=== PATIENT | male | born 1935 | race Caucasian/White ===

== ENCOUNTER 2019-09-21 15:51 | Inpatient (IN) | payer MEDICARE, OTHER ==
[~2019-09-21] VITALS: Ht 177.8 cm; Wt 123.2 kg
[~2019-09-21 15:51] MED LIST: ALBU90I INH; ALLO100 PO; ALLO300 PO; CALC.25 PO; FOSI10 PO; FOSINOPRIL PO; FURO40 PO; Lasix40 MG PO; MECL25 PO; RANI150 PO; SPIR25 PO; WARF6 PO; [UNRECOGNIZED DRUG - CODE] SL
[2019-09-21] MEDS ORDERED: Amlodipine Bes2.5 MG PO (16:13)
[2019-09-21 16:59] LABS: BASOPHILS ABSOLUTE AUTO 0.03 K/mm3 (0.00-0.23); BASOPHILS PERCENT AUTO 0 % (0-2); EOSINOPHILS ABSOLUTE AUTO 0.08 K/mm3 (0.00-0.68); EOSINOPHILS PERCENT AUTO 1 % (0-6); Hemoglobin 15.4 g/dL (13.5-17.5); IMMATURE GRAN ABSOLUTE AUTO 0.03 K/mm3 (0.00-0.10); IMMATURE GRAN PERCENT AUTO 0 % (0-1); LYMPHOCYTES ABSOLUTE AUTO 1.13 K/mm3 (0.84-5.20); LYMPHOCYTES PERCENT AUTO 15 % (21-46); MONOCYTES ABSOLUTE AUTO 0.44 K/mm3 (0.16-1.47); MONOCYTES PERCENT AUTO 6 % (4-13); Mean Corpuscular HGB Conc 32.1 g/dL (31.5-36.5); Mean Corpuscular Volume 100 fL (80-100); NEUTROPHILS ABSOLUTE AUTO 5.76 K/mm3 (1.96-9.15); NEUTROPHILS PERCENT AUTO 77 % (41-73); Platelet Count 237 K/mm3 (150-400); RDW Coefficient Variation 12.9 % (11.7-14.2); RDW Standard Deviation 47.4 fL (35.1-46.3); Red Blood Cell Count 4.82 M/mm3 (4.30-5.90); White Blood Cell Count 7.47 K/mm3 (4.00-11.30)
[2019-09-21 17:16] LABS: International Normalized Ratio 1.48; Prothrombin Time Results 15.5 Sec (9.7-11.5)
[2019-09-21 17:40] LABS: Albumin, Blood 3.8 g/dL (3.4-5.0); Bilirubin, Total 0.4 mg/dL (0.1-1.0); Bun/Creatinine Ratio 20.6 (12.0-20.0); Calcium, Blood 9.3 mg/dL (8.5-10.1); Creatinine, Blood 1.26 mg/dL (0.60-1.20); Globulin, Blood 3.9 g/dL (2.2-4.0); Potassium, Blood 3.6 mmol/L (3.5-5.5); Total Protein, Blood 7.7 g/dL (6.4-8.2)
[2019-09-21] MEDS ORDERED: POTA10T PO (17:50)
[2019-09-21] MEDS ORDERED: Bumetanide2 MG PO (17:51)
[2019-09-21 18:51] LABS: PCO2 Venous 60 mmHg (38-42); pH Blood Venous 7.34 (7.34-7.37)
[2019-09-21 18:52] LABS: Base Excess Venous 6.4 mmol/L; Bicarbonate Venous 27.9 mmol/L (24.0-30.0); PO2 Venous 50 mmHg (38-42)
[2019-09-21] MEDS ORDERED: VITAMIN D350 MCG PO (19:47)
--- NOTE | 2019-09-22 01:50 | NUR ---
PT ARRIVED TO ROOM AT 2230 FROM ER. SPOUSE AT BEDSIDE. MEDS VERIFIED WITH LAST DOSE TAKEN. SPOUSE HAD GIVEN PT HIS NIGHTIME MEDS WHILE A PT IN THE ER. INFORMED HER HE WILL BE GETTING HIS MEDS HERE IN THE HOSPITAL AND TO NOT GIVE HIM ANY MORE OF HIS OWN MEDS THAT SHE HAS WITH HER. STATES UNDERSTANDING. PT AND SPOUSE ORIENTED TO ROOM, ETC. VSS. UP TO BSC WITH URINAL. MISSED UA ORDER, WILL COLLECT AND SEND NEXT SAMPLE. ASSESSMENT NOTED. CALL LIGHT IN REACH. ABX INFUSED. RECLINER BROUGHT IN FOR .
[2019-09-22 04:12] LABS: Hematocrit 47.2 % (37.0-53.0); Hemoglobin 14.9 g/dL (13.5-17.5); Mean Corpuscular HGB 31.6 pg (26.0-34.0); Mean Corpuscular HGB Conc 31.6 g/dL (31.5-36.5); Mean Corpuscular Volume 100 fL (80-100); Platelet Count 244 K/mm3 (150-400); RDW Coefficient Variation 13.1 % (11.7-14.2); RDW Standard Deviation 48.4 fL (35.1-46.3); Red Blood Cell Count 4.71 M/mm3 (4.30-5.90)
[2019-09-22 04:35] LABS: Bun/Creatinine Ratio 23.7 (12.0-20.0); Calcium, Blood 9.6 mg/dL (8.5-10.1); Creatinine, Blood 1.39 mg/dL (0.60-1.20); Potassium, Blood 3.9 mmol/L (3.5-5.5)
--- NOTE | 2019-09-22 06:02 | NUR ---
NO SIG CHANGES SINCE ARRIVAL. PT HAS SLEPT OFF AND ON SINCE ADMISSION. CURRENTLY AWAKE, SITTING UP IN BED WITH LIGHTS ON, AT BEDSIDE, DRINKING DECAF COFFEE. DENIES ANY ADDITIONAL NEEDS. NO NEW COMPLAINTS. WILL CONT TO MONITOR, DOCUMENT ANY CHANGES AND WILL REPORT TO DAY SHIFT RN. CALL LIGHT IN REACH.
[2019-09-22 09:49] LABS: International Normalized Ratio 1.6; Prothrombin Time Results 16.7 Sec (9.7-11.5)
--- NOTE | 2019-09-22 11:30 | NUR ---
TRANSFER OF CARE REPORT CALLED TO [facility] ON MEDICAL FLOOR. PT TRANSFERED TO ROOM 309. ALL BELONGINGS GATHERED AND TRASFERRED WITH PT. FAMILY AND PCT [facility] ESCORTED PT UPSTAIRS VIA WHEELCHAIR.
--- NOTE | 2019-09-22 13:41 | NUR ---
PCU TRANSFER- PT ARRIVED TO ROOM 309 FROM PCU AT 1158 VIA W/C. PT SAB INTO BED. PT DENIES ANY COMPLAINTS AT THIS TIME. LS CLEAR ON 2L N/C HOWEVER PT HAD WENT TO THE RESTROOM AND SATS 93% ON RA AFTER EXERTION, WILL TITRATE OFF. PT DENIES ANY DIZZINESS WITH STANDING. HRR. 1+ BLE EDEMA. PT ORIENTED TO ROOM AND CALL SYSTEM. CALL LIGHT IN REACH. SPOUSE AT BEDSIDE.
--- NOTE | 2019-09-22 13:45 | NUR ---
PT AMBULATED IN HALLS WITH SBA, 02 SATS 93% ON RA WITH EXERTION.
--- NOTE | 2019-09-22 16:47 | NUR ---
SHIFT SUMMARY- PT A PCU TRANSFER THIS AM. PT A/OX4 HOWEVER NOTED TO HAVE SOME INCREASED CONFUSION AFTER SLEEPING FOR A SHORT PERIOD OF TIME ON ROOM AIR, SATS 90%, SLEEP STUDY ORDERED FOR TONIGHT. PT WAS ABLE TO AMBULATE ON ROOM AIR WITH SATS AT 93%. CONT BIOX IN PLACE, LS CLEAR. SBA INTO BATHROOM AND HALLWAYS. 1+ BLE EDEMA. NO OTHER ACUTE CHANGES SINCE ARRIVAL TO FLOOR.
--- NOTE | 2019-09-23 05:15 | NUR ---
NOC SHIFT SUMMARY PT AAOX4 THIS EVENING THOUGH HE DOES BECOME MORE CONFUSED DURING THE NIGHT. ON WAKING IT TAKES HIM A MOMENT TO GET HIS BEARINGS. SLEEP STUDY CONDUCTED THIS NIGHT. PT HAS BEEN UP TO THE RESTROOM MULTIPLE TIMES THIS NIGHT. EACH TIME HE GETS UP HE PULLS OFF HIS FINGER MONITOR. HAS SPENT MUCH OF THE NIGHT IN ROOM AND HELPS WITH CARE. VSS. SATS DO DROP ON RA WHILE SLEEPING. THIS RN SAW LOW 85%. NO ACUTE CHANGES NOTED. PT PRESENTLY APEARS TO BE SLEEPING AND IN NO ACUTE DISTRESS. WILL CONTINUE TO MONITOR.
[2019-09-23 06:01] LABS: BASOPHILS ABSOLUTE AUTO 0.05 K/mm3 (0.00-0.23); BASOPHILS PERCENT AUTO 1 % (0-2); EOSINOPHILS ABSOLUTE AUTO 0.26 K/mm3 (0.00-0.68); EOSINOPHILS PERCENT AUTO 4 % (0-6); Hematocrit 45.1 % (37.0-53.0); Hemoglobin 14.2 g/dL (13.5-17.5); IMMATURE GRAN ABSOLUTE AUTO 0.02 K/mm3 (0.00-0.10); IMMATURE GRAN PERCENT AUTO 0 % (0-1); LYMPHOCYTES ABSOLUTE AUTO 1.99 K/mm3 (0.84-5.20); LYMPHOCYTES PERCENT AUTO 29 % (21-46); MONOCYTES ABSOLUTE AUTO 0.63 K/mm3 (0.16-1.47); MONOCYTES PERCENT AUTO 9 % (4-13); Mean Corpuscular HGB 31.8 pg (26.0-34.0); Mean Corpuscular HGB Conc 31.5 g/dL (31.5-36.5); Mean Corpuscular Volume 101 fL (80-100); Mean Platelet Volume 8.7 fL (9.1-12.4); NEUTROPHILS ABSOLUTE AUTO 3.84 K/mm3 (1.96-9.15); NEUTROPHILS PERCENT AUTO 57 % (41-73); Platelet Count 206 K/mm3 (150-400); RDW Coefficient Variation 13.1 % (11.7-14.2); RDW Standard Deviation 48.9 fL (35.1-46.3); Red Blood Cell Count 4.47 M/mm3 (4.30-5.90); White Blood Cell Count 6.79 K/mm3 (4.00-11.30)
[2019-09-23 06:16] LABS: International Normalized Ratio 1.76; Prothrombin Time Results 18.2 Sec (9.7-11.5)
[2019-09-23 06:20] LABS: Bun/Creatinine Ratio 22.8 (12.0-20.0); Calcium, Blood 9.7 mg/dL (8.5-10.1); Creatinine, Blood 1.45 mg/dL (0.60-1.20); Potassium, Blood 3.9 mmol/L (3.5-5.5)
--- NOTE | 2019-09-23 17:50 | NUR ---
SHIFT SUMMARY PT HAS BEEN ALERT AND ORIENTED IN THE ROOM THROUGHOUT THIS SHIFT, WITH OCCASIONAL MINOR FORGETFULNESS. PT'S SPOUSE HAS BEEN IN THE ROOM FOR MOST OF THIS SHIFT. PT HAS BEEN INDEPENDENT IN THE ROOM THIS SHIFT AND HAS AMBULATED IN THE HALLWAY MULTIPLE TIMES THIS SHIFT. PT HAS BEEN ON ROOM AIR DURING MUCH OF THIS SHIFT AND HAS HAD AN O2 SAT AROUND 80. PT CURRENTLY SITTING ON THE SIDE OF THE BED EATING DINNER.
--- NOTE | 2019-09-23 23:12 | NUR ---
HELD EVENING METOPROLOL DUE TO PT HR IN THE 50'S. CALLED TO HOSPITALIST RYAN AND TRACY OF THIS.
--- NOTE | 2019-09-24 01:10 | NUR ---
PT REFUSES TO ALLOW SIDE RAILS TO BE UP. HE GETS UP TO VOID AND IS A FALL RISK. DOES NOT USE CALL LIGHT. BED ALARM SET.
--- NOTE | 2019-09-24 03:24 | NUR ---
NOC SHIFT SUMMARY PT HAS BEEN UP MULTIPLE TIMES THIS NIGHT TO THE RESTROOM. IN ROOM AND IS HELPFUL WITH CARE. PT BECOMES CONFUSED AT NIGHT AND DOES NOT USE CALL LIGHT AT ALL. VERY IMPULSIVE. REFUSES TO ALLOW SIDE RAILS UP IN BED. THE BED IS IN LOWEST POSITION AND ALARM IS SET. VSS. EVENING METOPROLOL HELD DUE TO HR IN THE 50'S. AT THIS TIME PT APPEARS TO BE SLEEPING AND IN NO ACUTE DISTRESS. WILL CONTINUE TO MONITOR.
[2019-09-24 05:25] LABS: International Normalized Ratio 1.88; Prothrombin Time Results 19.4 Sec (9.7-11.5)
[2019-09-24] MEDS ORDERED: METO50 PO (14:10)
[2019-09-24] MEDS ORDERED: CEFU250T47 PO (14:12)
[2019-09-24] MEDS ORDERED: AZIT250 PO (14:12)
--- NOTE | 2019-09-24 15:29 | NUR ---
PATIENT DISCHARGE: PATIOENT DISCHARGED TO HOME THIS SHIFT. MEDICATION RECONCILIATION COMPLETED; MED LIST FAXED TO [facility]. DISCHARGE EDUCATION COMPLETED WITH PATIENT AND FAMILY. PATIENT TRANSPORTED TO EXIT BY [facility] STAFF WITH WHEELCHAIR AT 1526. PATIENT DEPARTED [facility] VIA PRIVATE AUTO.
== END 2019-09-24 15:38 | disposition home or self-care (01) | DRG 193 ==
LOC: ER 15:51 → PCU 15:52 → MEDS 09-22 11:53
PROVIDERS: Emergency Medicine; Internal Medicine; Nurse Practitioner Acute Care; Pharmacist; Physician Assistant; ADMIT Hospitalist
DX: J18.9 Pneumonia, unspecified organism (principal); J96.21 Acute and chronic respiratory failure with hypoxia; J96.22 Acute and chronic respiratory failure with hypercapnia; I12.9 Hypertensive chronic kidney disease with stage 1 through stage 4 chronic kidney disease, or unspecified chronic kidney disease; N18.3 Chronic kidney disease, stage 3 (moderate); G47.33 Obstructive sleep apnea (adult) (pediatric); M10.9 Gout, unspecified; E78.5 Hyperlipidemia, unspecified; Z86.718 Personal history of other venous thrombosis and embolism; Z87.891 Personal history of nicotine dependence; Z79.01 Long term (current) use of anticoagulants
CPT/HCPCS: 36415; 70450; 71046; 71260; 80048; 80053; 82803; 83880; 84145; 84484; 85025; 85027; 85610; 85730; 93005; 93010; 93306; 94640; 94667; 94762; 96365; 96367; 99285-25; A9270-GY; G0378; J0456; J0696; J7050; Q9967

== ENCOUNTER 2019-10-09 03:15 | Emergency (ER) | payer MEDICARE, OTHER ==
[~2019-10-09] VITALS: Ht 177.8 cm; Wt 113.4 kg
[~2019-10-09 03:15] MED LIST changes: +AZIT250 PO; +Amlodipine Bes2.5 MG PO; +Bumetanide2 MG PO; +CEFU250T47 PO; +METO50 PO; +POTA10T PO; +VITAMIN D350 MCG PO
[2019-10-09 03:43] LABS: BASOPHILS ABSOLUTE AUTO 0.04 K/mm3 (0.00-0.23); BASOPHILS PERCENT AUTO 1 % (0-2); EOSINOPHILS ABSOLUTE AUTO 0.08 K/mm3 (0.00-0.68); EOSINOPHILS PERCENT AUTO 1 % (0-6); Hematocrit 46.4 % (37.0-53.0); Hemoglobin 14.9 g/dL (13.5-17.5); IMMATURE GRAN ABSOLUTE AUTO 0.02 K/mm3 (0.00-0.10); IMMATURE GRAN PERCENT AUTO 0 % (0-1); LYMPHOCYTES ABSOLUTE AUTO 1.49 K/mm3 (0.84-5.20); LYMPHOCYTES PERCENT AUTO 21 % (21-46); MONOCYTES ABSOLUTE AUTO 0.58 K/mm3 (0.16-1.47); MONOCYTES PERCENT AUTO 8 % (4-13); Mean Corpuscular HGB Conc 32.1 g/dL (31.5-36.5); Mean Corpuscular Volume 100 fL (80-100); Mean Platelet Volume 9.2 fL (9.1-12.4); NEUTROPHILS ABSOLUTE AUTO 5.03 K/mm3 (1.96-9.15); NEUTROPHILS PERCENT AUTO 69 % (41-73); Platelet Count 237 K/mm3 (150-400); RDW Coefficient Variation 12.8 % (11.7-14.2); RDW Standard Deviation 46.7 fL (35.1-46.3); Red Blood Cell Count 4.66 M/mm3 (4.30-5.90); White Blood Cell Count 7.24 K/mm3 (4.00-11.30)
[2019-10-09 03:57] LABS: Alanine Aminotransfer (ALT/SGP 27 U/L (12-78); Albumin, Blood 3.5 g/dL (3.4-5.0); Albumin/Globulin Ratio 0.8 (0.8-1.8); Alk Phos 61 U/L (50-136); Anion Gap 6 mmol/L (6-16); Aspartate Aminotrans (AST/SGOT 23 U/L (12-37); Bilirubin, Total 0.5 mg/dL (0.1-1.0); Blood Urea Nitrogen 35 mg/dL (8-24); Bun/Creatinine Ratio 24.8 (12.0-20.0); CO2, Blood 31 mmol/L (21-32); Chloride, Blood 103 mmol/L (98-108); Creatinine, Blood 1.41 mg/dL (0.60-1.20); Globulin, Blood 4.2 g/dL (2.2-4.0); Glomerular Filtration Rate 51 (60-); Glucose, Blood 163 mg/dL (70-99); Sodium, Blood 140 mmol/L (136-145); Total Protein, Blood 7.7 g/dL (6.4-8.2); Troponin I <0.015 ng/mL (0.000-0.040)
[2019-10-09 04:00] LABS: International Normalized Ratio 1.94
== END 2019-10-09 05:34 | disposition home or self-care (01) ==
LOC: ER 03:15
PROVIDERS: Emergency Medicine
DX: R06.00 Dyspnea, unspecified (principal); I12.9 Hypertensive chronic kidney disease with stage 1 through stage 4 chronic kidney disease, or unspecified chronic kidney disease; N18.3 Chronic kidney disease, stage 3 (moderate); Z79.899 Other long term (current) drug therapy; Z87.891 Personal history of nicotine dependence
CPT/HCPCS: 36415; 71046; 80053; 83735; 83880; 84484; 85025; 85610; 93005; 93010; 99284-25